=== PATIENT | female | born 1955 | race Caucasian/White ===

== ENCOUNTER 2022-08-23 05:30 | Emergency (ER) | payer MEDICARE, MEDICAID ==
[~2022-08-23] VITALS: Ht 157.5 cm; Wt 68.0 kg
[~2022-08-23 05:30] MED LIST: DICLOFENAC; GLIPIZIDE; METFORMIN; PRAVASTATIN
[2022-08-23] MEDS ORDERED: MECL-217 MT (07:56)
[2022-08-23 08:16] LABS: BASOPHILS % 0.7 % (0.0-2.0); EOSINOPHILS % 3.2 % (0.0-5.0); HEMATOCRIT. 36.4 % (36.0-48.0); LYMPHOCYTES % 19.9 % (20.0-50.0); MEAN CORPUSCULAR HEMOGLOBIN 26.8 pg (28.0-32.0); MEAN CORPUSCULAR VOLUME 81.3 fL (81.0-99.0); MEAN PLATELET VOLUME 7.7 fl (7.4-10.4); MONOCYTES % 4.9 % (2.0-8.0); NEUTROPHILS % 71.3 % (40.0-76.0); PLATELET 369 x1000/uL (130-400); RED BLOOD CELL COUNT 4.47 mill/uL (4.2-5.4); RED CELL DISTRIBUTION WIDTH 15.3 % (11.6-14.6)
[2022-08-23 08:23] LABS: CHLORIDE 107 mEq/L (98-107)
[2022-08-23 08:24] LABS: CLARITY URINE CLEAR (CLEAR); COLOR URINE YELLOW (YELLOW); KETONES URINE NEGATIVE (NEGATIVE); LEUKOCYTE ESTERASE URINE NEGATIVE (NEGATIVE); NITRITE URINE NEGATIVE (NEGATIVE); OCCULT BLOOD URINE NEGATIVE (NEGATIVE); PH URINE 7.5 (4.5-8.0); PROTEIN URINE NEGATIVE (NEGATIVE); SPECIFIC GRAVITY URINE 1.007 (1.005-1.030); UROBILINOGEN URINE 0.2 E.U./dL (0.2-1.0)
[2022-08-23 12:00] VITALS: BP 137/84
== END 2022-08-23 13:30 | disposition home or self-care (01) ==
LOC: ER 05:30
DX: R42 Dizziness and giddiness (principal); I10 Essential (primary) hypertension; E11.9 Type 2 diabetes mellitus without complications; E78.00 Pure hypercholesterolemia, unspecified
CPT/HCPCS: 36415; 71045; 80053; 81003; 82962; 84484; 85025; 99285